=== PATIENT | male | born 1960 | race Caucasian/White ===

== ENCOUNTER 2020-02-28 09:58 | Emergency (ER) | payer OTHER ==
[~2020-02-28] VITALS: Ht 175.3 cm; Wt 76.2 kg
--- NOTE | 2020-02-28 09:58 | NUR ---
PT BIB SELF C/O CHEST PRESSURE SINCE YESTERDAY. PT IS AAOX4, NOT IN RESPIRATORY DISTRESS, HOOKED TO BONDING AND COMPOSITE FABRICATOR, KEPT RESTED AND COMFORTABLE. WILL CONTINUE TO MONITOR.
--- NOTE | 2020-02-28 10:06 | NUR ---
SEEN AND EXAMINED BY .
--- NOTE | 2020-02-28 10:10 | NUR ---
IV LINE ESTABLISHED BLOOD DRAWN AND SENT TO LAB.
--- NOTE | 2020-02-28 10:13 | NUR ---
DR.KOSHKARYAN GUAJARDO EVAL.
[2020-02-28] MEDS ORDERED: ASPIRIN 325 MG TABLET ONE (10:16)
[2020-02-28 10:30] LABS: BASOPHILS # (AUTO) 0.1 /CMM (0.0-0.2); BASOPHILS % (AUTO) 1.3 % (0.0-2.0); EOSINOPHILS % (AUTO) 6.7 % (0.0-6.0); HEMATOCRIT 43 % (39-51); HEMOGLOBIN 14.5 g/dL (13.5-17.5); LYMPHOCYTES # (AUTO) 2.5 /CMM (0.8-4.8); LYMPHOCYTES % (AUTO) 29.5 % (20.0-44.0); MEAN CORPUSCULAR HGB CONC 34 g/dl (31.0-36.0); MEAN CORPUSCULAR VOLUME 92 fL (80-96); MONOCYTES # (AUTO) 0.4 /CMM (0.1-1.30); MONOCYTES % (AUTO) 4.5 % (2.0-12.0); NEUTROPHILS # (AUTO) 4.9 /CMM (1.8-8.9); PLATELET COUNT (AUTO) 330 /CMM (150-450); RED BLOOD CELL COUNT(AUTO) 4.69 MIL/uL (4.5-6.0); WHITE BLOOD COUNT (AUTO) 8.4 K/uL (4.3-11.0)
[2020-02-28] MEDS ORDERED: METF-881 PO (10:30)
[2020-02-28] MEDS ORDERED: GLIP5TAB13 PO (10:30)
[2020-02-28] MEDS ORDERED: ATOR20TA PO (10:30)
[2020-02-28] MEDS ORDERED: ASPIRIN 325 MG TABLET PO ONE (10:30)
[2020-02-28 10:44] LABS: CALCIUM, SERUM 8.8 mg/dL (8.5-10.1); CARBON DIOXIDE 25 mmol/L (21-32); CHLORIDE 102 mmol/L (98-107); CREATININE 0.8 mg/dL (0.6-1.3); GLUCOSE 245 mg/dL (74-106); POTASSIUM 4.3 mmol/L (3.5-5.1); SODIUM SERUM 136 mmol/L (136-145); UREA NITROGEN, BLOOD 17 mg/dL (7-18)
[2020-02-28 10:49] LABS: ALANINE AMINOTRANSFERASE 47 U/L (12-78); ALBUMIN 3.9 g/dL (3.4-5.0); ALKALINE PHOSPHATASE 53 U/L (46-116); ASPARTATE AMINOTRANSFERASE 18 U/L (15-37); BILIRUBIN,TOTAL 0.2 mg/dL (0.2-1.0); TOTAL PROTEIN, SERUM 6.9 g/dL (6.4-8.2)
[2020-02-28] MEDS ORDERED: METOPROLOL TARTRATE 25 MG TABLET PO ONE (11:00)
[2020-02-28] MEDS ORDERED: NITROGLYCERIN 0.4 MG/TAB BOTTLE SL PRN (11:00)
[2020-02-28] MEDS ORDERED: IV NS 0.9% 250 ML IV ONE (11:07)
[2020-02-28] MEDS ORDERED: IOHEXOL-350 100 ML VIAL IV ONE (11:07)
[2020-02-28] MEDS ORDERED: CT SWABBABLE VALVE TRANS SET 1 EA INFUS.SET MC ONE (11:07)
[2020-02-28] MEDS ORDERED: METOPROLOL TARTRATE INJ 5 MG/5 ML AMPUL ONE ×2 (11:09→11:33)
[2020-02-28] MEDS ORDERED: IV NS 0.9% 500 ML IV ONE (11:09)
--- NOTE | 2020-02-28 11:15 | NUR ---
PT IS WHEELED TO CT SCAN FOR [facility].
[2020-02-28] MEDS: METOPROLOL TARTRATE INJ 5 MG/5 ML AMPUL IVP PRN ×3 (11:17→11:27)
[2020-02-28] MEDS ORDERED: NITROGLYCERIN 4.9 GM SPRAY ONE (11:20)
--- NOTE | 2020-02-28 13:37 | NUR ---
IV removed. Catheter intact and site benign. Pressure and 4x4 applied to site. No bleeding noted. Patient discharged to home in stable condition. Written and verbal after care instructions given. Patient verbalizes understanding of instruction.
[2020-02-28 13:38] VITALS: BP 128/81
== END 2020-02-28 13:39 | disposition home or self-care (01) ==
LOC: ER 10:02
DX: I25.119 Atherosclerotic heart disease of native coronary artery with unspecified angina pectoris (principal); Z20.828 Contact with and (suspected) exposure to other viral communicable diseases; F17.200 Nicotine dependence, unspecified, uncomplicated; E78.5 Hyperlipidemia, unspecified; E11.9 Type 2 diabetes mellitus without complications; Z79.84 Long term (current) use of oral hypoglycemic drugs; Z79.899 Other long term (current) drug therapy
CPT/HCPCS: 36415; 71045; 75574; 80048; 80076; 84484; 85025; 87426; 93005; 93307; 96374; 99285; C9803; J3490 ×2; J7040; J7050; Q9967